=== PATIENT | male | born 1950 | race Caucasian/White ===

== ENCOUNTER 2017-07-07 10:59 | Emergency (ER) | payer SELFPAY ==
[~2017-07-07] VITALS: Ht 180.3 cm; Wt 68.0 kg
[2017-07-07 11:01] VITALS: BP 140/96; PULSE 72; RESP 18; TEMP 97.8; O2SAT 99
[2017-07-07 12:01] LABS: BILIRUBIN, URINE NEG (NEG); BLOOD, URINE SMALL (NEG); GLUCOSE,URINE NEG (NEG); KETONE, URINE NEG (NEG); MUCUS URINE MANY /lpf (OCC); NITRITE,URINE NEG (NEG); PH, URINE 5.5 (5.0-8.5); SQUAMOUS EPITHELIAL CELL URINE <1 /hpf (0-5); URINE COLOR YELLOW (YELLW/STRAW); URINE LEUKOCYTE ESTERASE NEG (NEG)
--- NOTE | 2017-07-07 12:21 | PD ---
HPI Chief Complaint: Complaint Time Seen by Provider: 11:12 Travel History International Travel<30 days: No Contact w/Intl Traveler<30days: No Traveled to known affect area: No History of Present Illness HPI 67-year-old male that presents to the ED for evaluation of penile pain for about 5 weeks now. Per patient he was seen at [facility] and had tests that show possible kidney stone. He was told to follow with urologist. Follow with urologist and had a cystoscopy and he was told that he had nothing to be concerned about. She has been tested and has not been found to have any urinary tract infections. Per patient he is having difficulty getting contact with his urologist since this cystoscopy and his been having more increasing pain since. Per patient he comes and goes and is usually when she urinates and feels like a burning sensation. Per patient the glans penis gets to change: He believes another something still going on and possibly worse from the cystoscopy. Patient tells me that he is self-pay and she has not been able to pay the last developed the urologist and he has been told apparently tolerated the staff that he cannot be seen until he pays his bill. Per patient she comes here in hopes of seen a urologist in the hospital to get a better assessment. Patient himself states that the pain is 10 out of 10 but he currently does not want any narcotic medication or medication for his pain as he states that he wants an answer of why he is having the pain and resolution to this pain. Patient denies any back pain or neck pain. PFSH Past Medical History Medical History: Denies Significant Hx Tetanus Vaccination: Unknown Influenza Vaccination: No Past Surgical History Surgical History: No Previous Surgery Social History Alcohol Use: No Tobacco Use: No Substance Use: No Allergies-Medications (Allergen,Severity, Reaction): Coded Allergies: No Known Allergies (Unverified , 07/07/17) Reported Meds & Prescriptions Reported Meds & Active Scripts Active Diclofenac Sodium DR (Diclofenac Sodium) 75 Mg Tabdr 75 Mg PO BID PRN Bactrim DS (Sulfamethoxazole-Trimethoprim) 800-160 Mg Tab 1 Tab PO BID 14 Days Review of Systems Except as stated in HPI: all other systems reviewed are Neg Physical Exam Narrative GENERAL: SKIN: Warm and dry. HEAD: Atraumatic. Normocephalic. EYES: Pupils equal and round. No scleral icterus. No injection or drainage. ENT: No nasal bleeding or discharge. Mucous membranes pink and moist. Tongue is midline. No uvula deviation. NECK: Trachea midline. No JVD. CARDIOVASCULAR: Regular rate and rhythm. No murmurs, S3, S4. RESPIRATORY: No accessory muscle use. Clear to auscultation. Breath sounds equal bilaterally. GASTROINTESTINAL: Abdomen soft, non-tender, nondistended. Hepatic and splenic margins not palpable. MUSCULOSKELETAL: Extremities without clubbing, cyanosis, or edema. No obvious deformities. Full range of motion of the upper and lower extremities bilaterally. 2+ pulses bilateral. NEUROLOGICAL: Awake and alert. No obvious cranial nerve deficits. Motor grossly within normal limits. Five out of 5 muscle strength in the arms and legs. Normal speech. PSYCHIATRIC: Appropriate mood and affect; insight and judgment normal. Data Data Last Documented VS Vital Signs Date Time Temp Pulse Resp B/P (MAP) Pulse Ox O2 Delivery O2 Flow Rate FiO2 07/07/17 11:13 18 07/07/17 11:01 97.8 72 140/96 (111) 99 Orders Orders Urinalysis - C+S If Indicated (07/07/17 11:12) Urine Culture (07/07/17 11:12) Gc And Chlamydia Pcr (07/07/17 11:12) Ct Abd/Pel W/O Iv Contrast (07/07/17 ) Mandatory Outpatient Referral (07/07/17 12:47) Labs Laboratory Tests Test 07/07/17 11:30 Urine Color YELLOW Urine Turbidity CLEAR Urine pH 5.5 Urine Specific Jenners 1.016 Urine Protein NEG mg/dL Urine Glucose (UA) NEG mg/dL Urine Ketones NEG mg/dL Urine Occult Blood SMALL Urine Nitrite NEG Urine Bilirubin NEG Urine Urobilinogen LESS THAN 2.0 MG/DL Urine Leukocyte Esterase NEG Urine RBC 2 /hpf Urine WBC 1 /hpf Urine Squamous Epithelial Cells <1 /hpf Urine Mucus MANY /lpf Microscopic Urinalysis Comment CULT NOT INDICATED MDM Medical Decision Making Medical Screen Exam Complete: Yes Emergency Medical Condition: Yes Medical Record Reviewed: Yes Interpretation(s) Last Impressions Abdomen/Pelvis CT 07/07/17 0000 Signed Impressions: Service Date/Time: Friday, July 07, 2017 12:00 - CONCLUSION: 1. 3 mm calcified nonobstructing lower pole right renal calculus. 2. No acute obstructive uropathy. 3. Left cortical and parapelvic renal cysts. 4. Enlarged prostate. 5. Diffuse urinary bladder wall thickening. 6. Degenerative changes involving the lumbar spine and bilateral hips. Miguelito Cain MD UA showed some blood. Differential Diagnosis Penal pain versus acute on chronic pain versus UTI versus disorder versus kidney stone versus complication from the procedure Narrative Course 67-year-old male that presents to the ED for evaluation of penile pain. Patient was properly examined and was found to have signs and symptoms of unclear etiology. Urine and CT were ordered as patient does show me his records from the previous hospitalizations and on March he was seen and kidney stone which was 2 mm. More than that he did not found to have any other findings other than some smaller kidney stones. Patient on physical exam does not appear to have any signs of acute disease. I did ask the patient if he had any sexual intercourse recently and he states that he had oral sex with and she tells me that he was making that story up and states he was masturbating to see that his penis was working. He did initially told me that he did have intercourse but he seems to minimalize this. I did ask him if there is any possibility to have an STD. He denies this. I did order recommended there is no other explanation for his symptoms. I did told the patient multiple times that the urologist will not come to the ER to see him at this time unless there is an indication for it, which at the time there is not. Urine and CT were essentially unremarkable although did review the CT and he does appear to have wall thickening of unclear etiology on the ladder. Concerning for possible infection. Also cancer? I am also concerned and patient could be having symptoms of prostatitis as he continues to have dysuria. Case was discussed in my attending Dr. Haney who agrees with plan. This time I may have penetrated referral for the patient. Patient was given a prescription for diclofenac sodium for inflammation as well as for pain and Bactrim for 14 days to cover for prostatitis and possible urinary tract infection. Of the urine is completely clean I did send a culture as prostatitis can have this presentation. Ultimately patient does need follow with the urologist again. He seems to be very unhappy with the urologist that he already sees so I did a monitor referral for him as he is self-pay to see another doctor as I do believe that he needs more studies to see what is causing this. Follow with PCP. See ED worsening symptoms. Diagnosis Primary Impression: Prostatitis, acute Additional Impression: Bladder wall thickening Patient Instructions: General Instructions Additional Instructions: We made a mandatory for to a urologist for you which means the Jose will make an appointment for you with a new urologist to get evaluated for her symptoms as well as the wall thickening of the bladder. Please make sure to answer the phone as the likely complicating the next 24-48 hours to make an appointment for you. Take antibiotic until completion. Follow-up with PCP. See ED for worsening symptoms. Med/Other Pt SpecificInfo: Prescription(s) given Scripts Diclofenac Sodium DR (Diclofenac Sodium DR) 75 Mg Tabdr 75 MG PO BID Y for PAIN SCALE 1 TO 10, #20 TAB 0 Refills Prov: Brandon Haney MD 07/07/17 Sulfamethoxazole-Trimethoprim (Bactrim DS) 800-160 Mg Tab 1 TAB PO BID for Infection for 14 Days, #28 TAB 0 Refills Prov: Brandon Haney MD 07/07/17 Disposition: 01 DISCHARGE HOME Condition: Bernardo Santos Jul 07, 2017 12:21
--- NOTE | 2017-07-07 12:29 | RADRPT ---
EXAM DATE/TIME: 07/07/2017 12:00 [facility] COMPARISON: No previous studies available for comparison. INDICATIONS : Penile pain and painful urination for five weeks. ORAL CONTRAST: No oral contrast ingested. RADIATION DOSE: 6.84 CTDIvol (mGy) MEDICAL HISTORY : None SURGICAL HISTORY : None. ENCOUNTER: Initial ACUITY: 1 month PAIN SCALE: 10/10 LOCATION: Bilateral penis TECHNIQUE: Volumetric scanning of the abdomen and pelvis was performed. Using automated exposure control and adjustment of the mA and/or kV according to patient size, radiation dose was kept as low as reasonably achievable to obtain optimal diagnostic quality images. DICOM format image data is av ailable electronically for review and comparison. FINDINGS: LOWER LUNGS: The visualized lower lungs are clear. LIVER: There is a 3.1 cm left hepatic lobe cyst. There is no dilation of the biliary tree. No c alcified gallstones. SPLEEN: Normal size without lesion. PANCREAS: Within normal limits. KIDNEYS: Normal in size and shape. There is no solid mass or hydronephrosis. There is a 3 mm aide cified nonobstructing lower pole right renal calculus. Left cortical and parapelvic cysts are noted. ADRENAL GLANDS: Within normal limits. VASCULAR: There is no aortic aneurysm. BOWEL/MESENTERY: The stomach, small bowel, and colon demonstrate no acute abnormality. There is no free intraperitoneal air or fluid. ABDOMINAL WALL: Within normal limits. RETROPERITONEUM: There is no lymphadenopathy. BLADDER: The urinary bladder wall is diffusely thickened. REPRODUCTIVE: The prostate is enlarged. INGUINAL: There is no lymphadenopathy or hernia. MUSCULOSKELETAL: Degenerative changes are noted involving lumbar spine and bilateral hips. CONCLUSION: 1. 3 mm calcified nonobstructing lower pole right renal calculus. 2. No acute obstructive uropathy. 3. Left cortical and parapelvic renal cysts. 4. Enlarged prostate. 5. Diffuse urinary bladder wall thickening. 6. Degenerative changes involving the lumbar spine and bilateral hips. Miguelito Cain MD on July 07, 2017 at 12:21 Board Certified Radiologist. This report was verified electronically.
[2017-07-07] MEDS ORDERED: BACT800T5 PO (12:47)
[2017-07-07] MEDS ORDERED: DICL75TA PO (12:47)
[2017-07-07] MEDS ORDERED: SULFAMETHOXAZOLE-TRIMETHOPRIM DS 800-160 MG TAB PO ONE (13:30)
[2017-07-07] MEDS ORDERED: ACETAMINOPHEN/HYDROcodone 325 MG/5 MG TAB PO ONE (13:30)
[2017-07-07 14:20] VITALS: BP 133/82
== END 2017-07-07 14:20 | disposition home or self-care (01) ==
LOC: NEPC 10:59
DX: N41.0 Acute prostatitis (principal); N20.0 Calculus of kidney; N28.1 Cyst of kidney, acquired; N40.0 Benign prostatic hyperplasia without lower urinary tract symptoms; Z79.899 Other long term (current) drug therapy
CPT/HCPCS: 74176; 81001; 87086; 87491; 87591